=== PATIENT | female | born 2000 | race Caucasian/White ===

== ENCOUNTER 2024-03-27 11:33 | Outpatient (CLI) | payer OTHER, MEDICAID, SELFPAY | END 2024-03-27 11:34 | disposition home or self-care (01) | LOC: NFLDREF 03-29 06:46 | PROVIDERS: PCP Family Medicine; Referring Provider Family Medicine; Visit Provider Physician Assistant | DX: R35.0 Frequency of micturition (principal); N39.0 Urinary tract infection, site not specified | CPT/HCPCS: 87086; 87186 ==